=== PATIENT | female | born 1960 | race Two or more races ===

== ENCOUNTER 2022-01-25 12:23 | Inpatient (IN) | payer MEDICAID, OTHER ==
[~2022-01-25] VITALS: Ht 154.9 cm; Wt 70.8 kg
[2022-01-25 14:25] LABS: BASOPHILS % 0.3 % (0.0-2.0); HEMATOCRIT. 36.7 % (36.0-48.0); HEMOGLOBIN. 12.2 g/dL (12.0-16.0); LYMPHOCYTES % 25.3 % (20.0-50.0); MEAN CORPUSCULAR HEMOGLOBIN 28.4 pg (28.0-32.0); MEAN CORPUSCULAR VOLUME 85.2 fL (81.0-99.0); MEAN PLATELET VOLUME 11.6 fl (7.4-10.4); NEUTROPHILS % 68.4 % (40.0-76.0); PLATELET 156 x1000/uL (130-400); RED BLOOD CELL COUNT 4.31 mill/uL (4.2-5.4); RED CELL DISTRIBUTION WIDTH 13.7 % (11.6-14.6)
[2022-01-25 14:39] LABS: CHLORIDE 112 mEq/L (98-107)
[2022-01-25] MEDS ORDERED: CLONIDINE 0.1MG TABLET PO PRN (20:00)
[2022-01-25] MEDS ORDERED: DIPHENHYDRAMINE 50MG/ML VIAL IV PRN (20:00)
[2022-01-25] MEDS ORDERED: ONDANSETRON HCL 4MG/2ML INJ IV PRN (20:00)
[2022-01-25] MEDS ORDERED: ACETAMINOPHEN 325MG TABLET PO PRN (20:00)
[2022-01-25] MEDS ORDERED: IPRATROPIUM/ALBUTEROL 0.5-3(2.5)MG/3ML NEB HHN PRN (20:00)
[2022-01-25 21:00] VITALS: BP 139/73
[2022-01-25 22:00] VITALS: BP 139/73
[2022-01-26] VITALS: BP 111/50
[2022-01-26 04:00] VITALS: BP 144/72
[2022-01-26] MEDS ORDERED: IBUP-2028 PO (04:54)
[2022-01-26 08:30] VITALS: BP 130/55
[2022-01-26 10:38] LABS: BASOPHILS % 0.2 % (0.0-2.0); EOSINOPHILS % 1.5 % (0.0-5.0); HEMATOCRIT. 36.9 % (36.0-48.0); HEMOGLOBIN. 12.4 g/dL (12.0-16.0); LYMPHOCYTES % 25.6 % (20.0-50.0); MEAN CORPUSCULAR HEMOGLOBIN 28.7 pg (28.0-32.0); MEAN CORPUSCULAR VOLUME 85.8 fL (81.0-99.0); MEAN PLATELET VOLUME 11.1 fl (7.4-10.4); MONOCYTES % 5.9 % (2.0-8.0); NEUTROPHILS % 66.8 % (40.0-76.0); PLATELET 139 x1000/uL (130-400); RED CELL DISTRIBUTION WIDTH 13.8 % (11.6-14.6)
[2022-01-26] MEDS ORDERED: GADOTERATE MEGLUMINE 5 MMOL/10 ML VIAL IV ONE ×2 (10:41→11:50)
[2022-01-26 10:50] LABS: CHLORIDE 112 mEq/L (98-107)
[2022-01-26] MEDS: DEXAMETHASONE 4MG/ML 1ML VIAL IV SCH ×3 (13:05→20:10)
[2022-01-26 20:00] VITALS: BP 113/60
[2022-01-27] MEDS: DEXAMETHASONE 4MG/ML 1ML VIAL IV SCH ×3 (00:28→12:11)
[2022-01-27 08:00] VITALS: BP 120/60
[2022-01-27 12:00] VITALS: BP 122/71
[2022-01-27 15:25] VITALS: BP 120/75
[2022-01-27 16:00] VITALS: BP 122/71
== END 2022-01-27 17:26 | disposition home or self-care (01) | DRG 58 ==
LOC: ER 12:23 → 6WST 17:00 → ENRESERV 19:58
PROVIDERS: ADMIT Internal Medicine; ATTEND Internal Medicine
DX: G93.0 Cerebral cysts (principal); E44.1 Mild protein-calorie malnutrition; M19.90 Unspecified osteoarthritis, unspecified site; R26.89 Other abnormalities of gait and mobility; R25.1 Tremor, unspecified; Z20.822 Contact with and (suspected) exposure to COVID-19; Z68.29 Body mass index [BMI] 29.0-29.9, adult; Z80.9 Family history of malignant neoplasm, unspecified
CPT/HCPCS: 36415; 70553; 80053; 85025; 87426; 93005; 93970; 99285; A9577; C9803; J1100